=== PATIENT | male | born 1965 | race Caucasian/White ===

== ENCOUNTER → 2016-09-10 | Outpatient (REF) | payer BC ==
[~2016-09-10] MED LIST: CEPH500T PO; FLUTISP; MECL-68 PO; OMEP40CA2 PO; VIAG100T PO
[2016-09-10 19:52] LABS: PERCENT SATURATION 62.1 % (19.7-37.4)
== END ==
LOC: M LAB REF 17:22
PROVIDERS: ATTEND Nurse Practitioner Family
DX: E83.110 Hereditary hemochromatosis (principal)

== ENCOUNTER → 2016-09-28 | Outpatient (REF) | payer BC ==
[2016-09-28 12:54] LABS: INR 0.9
== END ==
LOC: M LAB REF 12:24
PROVIDERS: ATTEND Nurse Practitioner Family
DX: Z01.812 Encounter for preprocedural laboratory examination (principal)

== ENCOUNTER → 2016-09-30 | Outpatient (CLI) | payer BC ==
[~2016-09-30] MED LIST changes: +LIDOCAINE 1% MDV 20ML VIAL As Ordered ONE
--- NOTE | 2016-09-30 17:49 | REP ---
ULTRASOUND GUIDED LIVER BIOPSY: The procedure was performed under the direct supervision of Dr. Vásquez. The risks and benefits of the procedure were explained to the patient and informed consent was obtained. The right lobe of the liver was localized using ultrasound guidance. The skin was prepped and draped in a sterile fashion. 1% Lidocaine was used as a local anesthetic. Using ultrasound guidance a 19/20-gauge coaxial needle biopsy system was inserted and advanced into the liver. 7 core biopsy samples were obtained and sent to the lab. The patient tolerated the procedure well and there were no immediate complications. After the appropriate amount of monitored convalescence the patient was discharged from the department. Reviewed by SHIRLEY Aiken 10/01/2016 08:22 AEdited and Signed by Ernesto Vásquez MD 10/01/2016 04:56 P
== END ==
LOC: M RADPRO 08:31
DX: E83.119 Hemochromatosis, unspecified (principal); Z79.899 Other long term (current) drug therapy

== ENCOUNTER → 2017-09-20 | Outpatient (REF) | payer BC ==
[2017-09-20 14:02] LABS: GAMMA GLUTAMYLTRANSPEPTIDASE 425 U/L (15-85)
[2017-09-20 14:02] LABS: FERRITIN 202 NG/ML (26-388)
== END ==
LOC: M LAB REF 13:25
DX: E83.110 Hereditary hemochromatosis (principal); R74.8 Abnormal levels of other serum enzymes
CPT/HCPCS: 82977

== ENCOUNTER → 2020-07-10 | Outpatient (REF) | payer BC ==
[~2020-07-10] MED LIST changes: -LIDOCAINE 1% MDV 20ML VIAL As Ordered ONE; -MECL-68 PO; +MECL1TAB31 PO; -OMEP40CA2 PO; +OMEP40CA97 PO
[2020-07-10 14:27] LABS: FOLATE 9.9 NG/ML
== END ==
LOC: M LAB REF 12:55
PROVIDERS: ATTEND Registered Nurse
DX: E83.110 Hereditary hemochromatosis (principal); R94.5 Abnormal results of liver function studies

== ENCOUNTER → 2021-07-11 | Outpatient (REF) | payer BC ==
[~2021-07-11] MED LIST changes: +OMEP40CA4 PO; -OMEP40CA97 PO
[2021-07-11 14:02] LABS: PERCENT SATURATION 39.9 % (19.7-50.0)
[2021-07-11 14:09] LABS: FOLATE 8.2 NG/ML
== END ==
LOC: M LAB REF 12:09
PROVIDERS: ATTEND Physician Assistant Medical
DX: E83.110 Hereditary hemochromatosis (principal)

== ENCOUNTER → 2021-12-12 | Outpatient (CLI) | payer BC ==
[~2021-12-12] MED LIST changes: +FLON1SPR; +LISI10TA22 PO; +MILK175C6 PO; +MOME0.1C3 EX
== END ==
LOC: M LABSMTC 09:12
PROVIDERS: ATTEND Anesthesiology
DX: Z01.812 Encounter for preprocedural laboratory examination (principal); Z20.822 Contact with and (suspected) exposure to COVID-19

== ENCOUNTER 2021-12-17 09:01 | Day surgery (SDC) | payer BC ==
[~2021-12-17] VITALS: Ht 185.4 cm; Wt 97.4 kg
[~2021-12-17 09:01] MED LIST changes: +CALC500C16 PO; +LIDOCAINE 2% 100MG/5ML SDV (FOR ANES.) As Ordered ONE; +NS 1,000 ML IV ONE; +propofoL 200 MG/20 ML VIAL As Ordered ONE
[2021-12-17 10:58] VITALS: BP 128/86
== END 2021-12-17 10:59 | disposition home or self-care (01) ==
LOC: M OPP 09:01
PROVIDERS: ATTEND Internal Medicine Gastroenterology
DX: Z12.11 Encounter for screening for malignant neoplasm of colon (principal); Z86.010 Personal history of colon polyps; K57.30 Diverticulosis of large intestine without perforation or abscess without bleeding; K64.0 First degree hemorrhoids; Z79.899 Other long term (current) drug therapy; Z88.0 Allergy status to penicillin

== ENCOUNTER → 2022-05-08 | Outpatient (REF) | payer BC ==
[~2022-05-08] MED LIST changes: -LIDOCAINE 2% 100MG/5ML SDV (FOR ANES.) As Ordered ONE; -NS 1,000 ML IV ONE; -propofoL 200 MG/20 ML VIAL As Ordered ONE
[2022-05-08 17:57] LABS: PERCENT SATURATION 40.8 % (19.7-50.0)
== END ==
LOC: M LAB REF 16:24
PROVIDERS: ATTEND Registered Nurse
DX: E83.110 Hereditary hemochromatosis (principal)

== ENCOUNTER → 2022-06-10 | Outpatient (CLI) | payer BC | LOC: M CLY 14:08 | PROVIDERS: ATTEND Physician Assistant Medical | DX: R07.89 Other chest pain (principal); R91.8 Other nonspecific abnormal finding of lung field ==

== ENCOUNTER → 2022-07-03 | Outpatient (CLI) | payer BC ==
[~2022-07-03] MED LIST changes: +ISOVUE-370 76% 100ML VIAL As Ordered ONE
== END ==
LOC: M RAD 08:36
PROVIDERS: ATTEND Physician Assistant Medical
DX: R91.8 Other nonspecific abnormal finding of lung field (principal)

== ENCOUNTER → 2022-12-28 | Outpatient (CLI) | payer BC, OTHER ==
[~2022-12-28] MED LIST changes: +FLUT50SP17; -FLUTISP; -ISOVUE-370 76% 100ML VIAL As Ordered ONE
== END ==
LOC: M RAD 08:02
PROVIDERS: ATTEND Physician Assistant Medical
DX: R74.01 Elevation of levels of liver transaminase levels (principal)

== ENCOUNTER → 2023-06-23 | Outpatient (REF) | payer OTHER ==
[~2023-06-23] MED LIST changes: +MECL-209 PO; -MECL1TAB31 PO
[2023-06-23 18:51] LABS: PERCENT SATURATION 42.3 % (19.7-50.0)
== END ==
LOC: M LAB REF 16:33
PROVIDERS: ATTEND Physician Assistant Medical
DX: E83.110 Hereditary hemochromatosis (principal)

== ENCOUNTER → 2024-08-08 | Outpatient (REF) | payer OTHER ==
[~2024-08-08] MED LIST changes: -FLUT50SP17; +FLUTISP
[2024-08-08 14:00] LABS: FERRITIN 184.1 NG/ML (10.5-307.3)
== END ==
LOC: M LAB REF 12:28
PROVIDERS: ATTEND Physician Assistant Medical
DX: E83.110 Hereditary hemochromatosis (principal); R76.0 Raised antibody titer

== ENCOUNTER → 2025-02-08 | Outpatient (REF) | payer OTHER | LOC: M LAB REF 12:43 | PROVIDERS: ATTEND Physician Assistant Medical | DX: K76.0 Fatty (change of) liver, not elsewhere classified (principal); E83.110 Hereditary hemochromatosis ==